=== PATIENT | female | born 1970 | race African-American/Black ===

== ENCOUNTER 2018-10-13 18:22 | Emergency (ER) | payer OTHER | END 2018-10-13 19:09 | disposition home or self-care (01) | LOC: NAV ERS 18:22 | DX: K02.9 Dental caries, unspecified (principal); K03.81 Cracked tooth; K21.9 Gastro-esophageal reflux disease without esophagitis; I10 Essential (primary) hypertension; F32.9 Major depressive disorder, single episode, unspecified; Z86.718 Personal history of other venous thrombosis and embolism; Z79.891 Long term (current) use of opiate analgesic; Z79.899 Other long term (current) drug therapy | CPT/HCPCS: 99282 ==